=== PATIENT | female | born 1945 | race Two or more races ===

== ENCOUNTER → 2016-11-07 | Day surgery (SDC) | payer MEDICARE, MEDICAID ==
[~2016-11-07] VITALS: Ht 165.1 cm; Wt 79.4 kg
[2016-11-07] VITALS (11 sets, daily range): BP systolic 113–132; BP diastolic 55–69
[~2016-11-07] MED LIST: ASPIR 8181 MG ORAL; Bupivacaine w/Epi 0.5% 30ml Vial INJ ONE; D5 1/2NS 1,000 ML IV SCH; DiphenhydrAMINE 50mg/ml Inj IVP PRN; HYDROmorphone 1mg/ml Carpuject SUBQ PRN; Hydromorphone 0.5mg/0.5ml inj IVP PRN; Ketorolac 30mg Inj IV PRN; LEXAPRO20 MG ORAL; LR 1000ml 1,000 ML IVLG SCH; LR 1000ml ONE; MOBIC15 MG ORAL; Midazolam 2mg/2ml Inj ONE; NEXIUM40 MG ORAL; NS Irrig 4000ml IRRIG ONE; Norco 5mg/325mg tab ORAL PRN; Propofol 10mg/ml 20ml IV ONE; Ropivacaine 5mg/ml Vial 20ml INJ ONE; SIMVASTATIN40 MG ORAL; Tylenol #3 tab (300mg/30mg) ORAL PRN; ceFAZolin 1gm/50ml Premix 50 ML IV ONE; celeBREX 200mg Cap **SURGERY PATIENTS ONLY ORAL ONE; fentaNYL 100 mcg/2 mL IV ONE; fentaNYL 100 mcg/2 mL IV PRN; oxyCONTIN 20mg tab ORAL ONE
--- NOTE | 2016-11-07 06:55 | Pre-Procedure Note/Attestation ---
Pre-Procedure Note/Attestation Complete Prior to Procedure Planned Procedure: right Procedure Narrative: Rt shoulder scope, SAD, mini girma, RTC debridement with subscap repair Indications for Procedure Pre-Operative Diagnosis: Rt shoulder impingement, RTC tear, subscap tear Attestation I attest that I discussed the nature of the procedure; its benefits; risks and complications; and alternatives (and the risks and benefits of such alternatives ), prior to the procedure, with the patient (or the patient's legal customer retention representative). I attest that, if there was a reasonable possibility of needing a blood transfusion, the patient (or the patient's legal customer retention representative) was given the [place] [employer] [facility] [employer] [facility] standardized written summary, pursuant to the [place] Blood Safety Act ([place] Health and Safety Code # 1645, as amended). I attest that I re-evaluated the patient just prior to the surgery and that there has been no change in the patient's H&P, except as documented below:NONE KATE BRANHAM Nov 07, 2016 06:55
--- NOTE | 2016-11-07 14:59 | Anethesia Preoperative Eval ---
Anesthesia Pre-op PMH/ROS General Date of Evaluation: Nov 07, 2016 Time of Evaluation: 14:54 Anesthesiologist: Claudio ASA Score: ASA 2 Mallampati Score Class I : Soft palate, uvula, fauces, pillars visible Class II: Soft palate, uvula, fauces visible Class III: Soft palate, base of uvula visible Class IV: Only hard plate visible Mallampati Classification: Class II Surgeon: Jordon Diagnosis: R shoulder pain Surgical Procedure: R shoulder arthroscopy Anesthesia History: none Social History: smoking - h/o Family History: no anesthesia problems Allergies: Coded Allergies: No Known Allergies (Unverified , 11/02/16) Medications: see eMAR Past Medical History Cardiovascular: Reports: HTN, Denies: CAD, IA, arrhythmia, other, valve dz Pulmonary: Denies: COPD, WALTER, asthma, other Gastrointestinal/Genitourinary: Reports: GERD, Denies: CRI, ESRD, other Neurologic/Psychiatric: Reports: depression/anxiety, Denies: CVA, TIA, dementia, other Endocrine: Denies: DM, hypothyroidism, other, steroids HEENT: Denies: [place] (L), [place] (R), cataract (L), cataract (R), glaucoma, other Hematology/Immune: Denies: DVT, anemia, bleeding disorder, other Musculoskeletal/Integumentary: Reports: DJD, Denies: DDD, OA, RA, edema, other Other: other - overweight PMH Narrative: as above PSxH Narrative: Abdominoplasty, knee arthroscopy Anesthesia Pre-op Phys. Exam Physician Exam Last Vital Signs Date Time Temp Pulse Resp B/P Pulse Ox O2 Delivery O2 Flow Rate FiO2 11/07/16 13:12 98.0 67 20 130/69 97 Room Air Constitutional: NAD Neurologic: CN 2-12 intact Cardiovascular: RRR, no M/R/G Respiratory: CTA Gastrointestinal: S/NT/ND Airway Exam Mallampati Score: Class II MO: full Neck: stiff ROM: full Teeth: missing Dentures: no lower, no upper Anesthesia Pre-op A/P Labs see chart Studies Pre-op Studies: EKG - NSR Risk Assessment & Plan Assessment: ASA 2 Plan: GA with LMA R brachial plexus block for p/op pain control Status Change Before Surgery: No Pre-Antibiotics Drug: Ancef 1gr. Given Within 1 Hr of Incision: Yes Time Given: 14:59 DAVIE RAMOS M.D. Nov 07, 2016 14:59
--- NOTE | 2016-11-07 17:50 | Brief Operative Note ---
Immediate Post Operative Note Operative Note Chief Complaint: rt shoulder pain Pre-op Diagnosis: Rt shoulder RTC tear Procedure: rt shoulder scope, SAD, mini girma, RTC repair, subscap repair Post-op Diagnosis: same as pre-op Findings: consistent w/pre-op dx studies Surgeon: md scarlet Construction Technician: karen watson Anesthesiologist: md leobardo Anesthesia: general Specimen: none Complications: none Condition: stable Estimated Blood Loss: minimal Drains: none Implant(s) used?: Yes - biomet TREVOR WATSON Nov 07, 2016 17:50
--- NOTE | 2016-11-07 18:06 | Immediate Post-Op Evaluation ---
Immediate Post-Op Evalulation Immediate Post-Op Evalulation Procedure: R shoulder arthroscopy RC repair Date of Evaluation: Nov 07, 2016 Time of Evaluation: 18:04 IV Fluids: 800 Blood Products: none Estimated Blood Loss: 50 Urinary Output: none Blood Pressure Systolic: 119 Blood Pressure Diastolic: 63 Pulse Rate: 64 Respiratory Rate: 20 O2 Sat by Pulse Oximetry: 99 Temperature (Fahrenheit): 97.2 Pain Score (1-10): 2 Nausea: No Vomiting: No Complications none Patient Status: awake, patent, none Hydration Status: adequate DAVIE RAMOS M.D. Nov 07, 2016 18:06
--- NOTE | 2016-11-07 18:08 | 48 Hour Post Anesthesia Eval ---
Post Anesthesia Evaluation Procedure: R shoulder arthroscopy RC repair Date of Evaluation: Nov 07, 2016 Time of Evaluation: 18:32 Blood Pressure Systolic: 116 0: 72 Pulse Rate: 68 Respiratory Rate: 20 Temperature (Fahrenheit): 97.6 O2 Sat by Pulse Oximetry: 98 Airway: patent Nausea: No Vomiting: No Pain Intensity: 2 Hydration Status: adequate Cardiopulmonary Status: stable Mental Status/LOC: patient returned to baseline Follow-up Care/Observations: n/a Post-Anesthesia Complications: none Follow-up care needed: ready to discharge DAVIE RAMOS M.D. Nov 07, 2016 18:08
--- NOTE | 2016-11-08 00:48 | Operative Note - Dictated ---
DATE OF OPERATION: 11/07/2016 SURGERY DATE: 11/07/2016. PREOPERATIVE DIAGNOSES: Right shoulder massive rotator cuff tear including supraspinatus, infraspinatus and subscap. POSTOPERATIVE DIAGNOSES: 1. Right shoulder massive rotator cuff tear including tear of the subscap as well as the supraspinatus and infraspinatus of 3.5 cm tear. 2. Right shoulder rupture of the biceps tendon from the biceps anchor. 3. Right shoulder large subacromial bone spur and bone spur underneath the distal clavicle. PROCEDURE: 1. Right shoulder arthroscopy and extensive intra-articular shaving. 2. Right shoulder arthroscopic subscapularis repair using 2 Biomet 2.9 mm double loaded juggernaut anchors. 3. Right shoulder subacromial bursoscopy, bursectomy, and subacromial decompression. 4. Right shoulder mini-Girma procedure (resection inferior 30% of distal end of the clavicle for coplaning). 5. Right shoulder arthroscopic repair of the massive rotator cuff measuring 3 cm with three 2.9 mm Biomet double loaded juggernaut anchors. SURGEON: Cecil Ruvalcaba M.D. STAFF COUNSELOR: Enrollment Clerk was present during the actual operative portion of the case and was important and essential part of the operation. During the operation, the payroll and benefits assistant held and operated the arthroscopic camera for visualization, assisted by manipulating the arm to help with visualization, and helped with essential parts of the repair process as necessary such as operating surgical instruments under surgeon supervision, suture management, and wound closures. STAFF COUNSELOR: Carmenza Hraper PA-C. ANESTHESIOLOGIST: Jeff Snyder M.D. ANESTHESIA: LMA anesthesia combined with interscalene block. EBL: Minimal. COMPLICATIONS: None. SURGICAL INDICATION: Patient is a 71 year old female who sustained the above injury to her shoulder. The patient was treated non-operative initially, but this did not alleviate the patients symptoms. Therefore, after discussing all non-surgical and surgical options, and discussing all foreseeable risk and benefits of surgery, the patient opted for surgical treatment as described above. PATIENT POSITIONING: Patient was brought to the operating room table and was placed on the operating room table. All pressure points were well padded. General anesthesia was induced and patient was then placed in the lateral decubitus position. All pressure points were well padded again and an axillary roll was placed. Patient shoulder was then prepped and draped in the usual sterile fashion. Time out was performed and the appropriate preoperative antibiotic was given by the anesthesiologist. EXAMINATION OF SHOULDER UNDER ANESTHESIA: The shoulder was examined under anesthesia with all muscles well relaxed. The shoulder was forward flexed, abducted and was placed through full range of external and internal rotation. The anterior, posterior, and inferior stability of the shoulder was checked. The exam revealed no evidence of adhesive capsulitis and no evidence of instability. PORTAL PLACEMENT: The posterior portal was established 2 cm inferior and 1 cm medial to the edge of the posterior acromion. 1 cm skin incision was made using an eleven blade and using the blunt obturator, the cannula was gently placed through the capsule. The midglenoid portal was established just lateral to the coracoid process under direct visualization. Direction of the cannula was first established using a spinal needle, and subsequently, the cannula was placed through the capsule with a blunt obturator. The anterior superior cannula was established under direct visualization off the anterior lateral edge of the acromion and just anterior to the biceps tendon through the rotator interval. The directional of cannula was first established using a spinal needle, and subsequently, the cannula was placed through the capsule with a blunt obturator. DIAGNOSTIC ARTHROSCOPY: The biceps tendon was absent and it was already torn from the glenoid. The biceps anchor was palpated with a probe and was visualized. It appeared well attached and there was no evidence of SLAP tear. The posterior labrum and axillary recess was visualized. This was normal and there was no evidence of loose cartilage or fragments in this area. The glenoid articular surface was visualized and it appeared normal. The articular surface of the rotator cuff was visualized and probed next. There is a full thickness rotator cuff tear including supraspinatus and infraspinatus. This was retracted up to the mid acromial area. However, this was mobile. The humeral head articular surface was then visualized. There was no evidence of articular cartilage damage. Next the anterior labrum, middle gleno-humeral ligament, subscapularis tendon, and the anterior inferior gleno-humeral ligament were evaluated. The subscapular tendon was torn. The gleno-humeral ligament was identified. Anterior inferior labrum was intact. The subscapular however was identified and could be mobilized. At this point, the scope was moved to the midglenoid portal and the posterior structures including the posterior labrum, posterior capsule and posterior cuff were visualized. The posterior cuff showed tear of the infraspinatus. The subscapularis recess was devoid of any loose bodies, although there was a tear of subscapularis although subscap could be mobilized. The middle and anterior inferior glenohumeral ligament was visualized. These structures were completely normal. OPERATIVE DEBRIDEMENTS AND REPAIR: Care was given to all partial thickness tears and frayed structures in the shoulder joint. The frayed rotator cuff and labrum was debrided using a shaver initially through the anterior portal and subsequently through the posterior portal to complete the debridement. This allowed for smooth debridement of all affected structures and all loose fragments were removed. At this point, care was given to the subscap. The subscap was mobilized with combination of releases. Once this was completed, the footprint was identified and was debrided. At this point, two 2.9 mm juggernaut anchor loaded with 2 strong sutures were placed at the footprint of subscap. At this point, 2 horizontal mattress sutures were placed to the subscap and 2 simple sutures were used to compress the subscap against the footprint. Total of 4 strong sutures were used to repair the subscap using standard suture passing techniques. SMC knots were used to tie down the subscap without any complications. This provided excellent subscap and the shoulder was placed through rotation and the footprint appeared to be holding very well. DIAGNOSTIC BURSOSCOPY AND SUBACROMIAL DECOMPRESSION: The subacromion bursa was entered from the posterior portal. The anterior portal was established under the CA ligament using a switching stick. Subacromial arthroscopy was initiated. There was extensive bursitis and thickened and inflamed bursa tissue present. The CA ligament appeared to be scuffed and frayed. The shaver was placed through the anterior cannula and debridement of the hypertrophic bursa tissue was accomplished. Once visualization was adequate, a lateral portal was established using a blunt trochar in the mid portion of the acromion bone in the anterior-posterior direction and approximately 2 cm lateral to the lateral edge of the acromion. Using combination of shaver and electrocautery the CA ligament was released from the undersurface of the acromion and a complete bursectomy was accomplished. At this point, a subacromial decompression was performed using a pilar initially taking off 5-8 mm of the anterolateral edge of the acromion from the lateral portal and viewing from the posterior portal. Then the lateral border of the undersurface of the acromion was decompressed to the same dept as the anterolateral edge. A posterior trough was then created in the acromion in line with the posterior edge of the clavicle. At this point, the scope was placed in the lateral portal and the subacromial decompression was performed from the posterior portal decompressing the undersurface of the acromion to dept of 5-8 mm. The decompression was performed anterior to the previously marked trough all the way medially to the level of the AC joint. At all times, care was given not to take off too much bone in order to avoid risk of fracture of the acromion. An excellent subacromial decompression was performed in this fashion. At this point, the bursal side of the rotator cuff was examined. All the bursa over the rotator cuff was removed and the rotator cuff was examined with a probe. The arm was placed into external rotation, neutral, and then internal rotation and revealed a crescent shape tear of the supraspinatus and infraspinatus measuring 3 cm with retraction of the mid acromial area. However, this was mobile. The scope was then placed in the posterior portal and the subacromial decompression was rechecked to assure there is no area of bone spur that would be still impinging onto the rotator cuff. EVALUATION OF DISTAL CLAVICLE AND DISTAL CLAVICLE RESECTION: Care was given to the distal end of the clavicle. Using electrocautery and dev, the distal end of the bursa and soft tissue around the distal end of the clavicle was debrided and cleaned. Care was given not to inflict excessive trauma to the ligaments of the AC joint. The distal end of the clavicle appeared to have an inferior osteophyte extending down well bellow the level of the acromion at the level of the AC joint. This appeared to be impinging onto the supraspinatus muscle belly and the musculotendenous junction of the rotator cuff. A mini-girma procedure was performed by using a pilar to resect the inferior 30% of the distal end of the clavicle. This decompression allowed space for the inferior structures to slide without impingement. This co-plained the inferior edge of the distal clavicle with the inferior edge of the acromion. The scope was placed in the lateral portal and the rotator cuff was visualized. The rotator cuff revealed a crescent shape non-retracted rotator cuff involved in the supraspinatus and infraspinatus. The rotator cuff foot print adjacent to the articular cartilage of the humeral head was identified. This area was debrided initially using dev and subsequently using pilar to provide adequate bleeding bony surface to accept the rotator cuff tendon. Attention was given to repair the rotator cuff with as little tension as possible. At this point, an arthroscopic punch was used to create holes for suture anchor placement at the medial edge of the foot print through separate stab wound incisions and an arthroscopic tap was used to prepare the holes. Three Biomet 2.9 mm juggernaut anchors double loaded with two #2 non-absorbable strong sutures were placed in previously prepared holes. Using standard arthroscopic suture passing instruments, the sutures were passed through the edge of rotator cuff with minimal trauma to the cuff tissue. Care was given to obtain large enough bites of the rotator cuff for the sutures to hold well. Once the sutures were passed through the cuff, the repair was secured onto the rotator cuff foot print using SMC sliding knots followed by 3 alternating-post half hitches. This allowed tension free repair of the rotator cuff with excellent stability and water tight closure. The cuff repair security was assured by palpating the repair with a probe. CONDITION AT DISCHARGE FROM OPERATING ROOM: The skin was re-approximated and sterile dressing and sling were applied. All lap counts and instrument counts were correct. Patient tolerated the procedure well without complications and was taken to the recovery room in stable conditions. Cecil Ruvalcaba M.D. DR: BERNARD JOB#: [id number] CC:
== END | disposition home or self-care (01) ==
LOC: SUR 12:27
DX: M75.121 Complete rotator cuff tear or rupture of right shoulder, not specified as traumatic (principal); M66.321 Spontaneous rupture of flexor tendons, right upper arm; M75.81 Other shoulder lesions, right shoulder; I10 Essential (primary) hypertension; K21.9 Gastro-esophageal reflux disease without esophagitis; F32.9 Major depressive disorder, single episode, unspecified; F41.9 Anxiety disorder, unspecified; M19.90 Unspecified osteoarthritis, unspecified site; E66.3 Overweight
CPT/HCPCS: 29824; 29826; 29827; J2250; J2704; J2795; J3010; J7120; 94003; 94150; C1713